=== PATIENT | female | born 1940 | race Caucasian/White ===

== ENCOUNTER → 2024-01-02 | Outpatient (CLI) | payer MEDICARE | END | disposition home or self-care (01) | LOC: US 07:16 | PROVIDERS: ATTEND Internal Medicine | DX: N28.1 Cyst of kidney, acquired (principal); N39.0 Urinary tract infection, site not specified; N28.89 Other specified disorders of kidney and ureter ==

== ENCOUNTER → 2024-01-13 | Outpatient (CLI) | payer MEDICARE | LOC: US 12:22 | PROVIDERS: ATTEND Internal Medicine | DX: G64 Other disorders of peripheral nervous system (principal); I73.9 Peripheral vascular disease, unspecified ==